=== PATIENT | female | born 1940 | race Caucasian/White ===

== ENCOUNTER 2019-03-07 19:04 | Emergency (ER) | payer MEDICARE, BC ==
[~2019-03-07] VITALS: Ht 157.5 cm; Wt 82.6 kg
[2019-03-07 19:11] VITALS: Ht 157.5 cm; Wt 82.6 kg
[2019-03-07] MEDS ORDERED: SYNTHROID75 MCG (19:12)
[2019-03-07] MEDS ORDERED: BAYER CHEWABLE81 MG PO (19:12)
[2019-03-07] MEDS ORDERED: PRAVACHOL40 MG PO (19:12)
[2019-03-07 21:17] VITALS: BP 126/85
== END 2019-03-07 21:17 | disposition home or self-care (01) ==
LOC: D.ER 19:04
DX: S60.511A Abrasion of right hand, initial encounter (principal); W10.9XXA Fall (on) (from) unspecified stairs and steps, initial encounter; S70.01XA Contusion of right hip, initial encounter; S20.211A Contusion of right front wall of thorax, initial encounter; E11.9 Type 2 diabetes mellitus without complications; E07.9 Disorder of thyroid, unspecified; I10 Essential (primary) hypertension; K21.9 Gastro-esophageal reflux disease without esophagitis